=== PATIENT | male | born 1955 | race Two or more races ===

== ENCOUNTER 2017-10-20 11:13 | Emergency (ER) | payer MEDICARE, OTHER ==
--- NOTE | 2017-10-20 11:26 | PDOC ---
Attending Attestation - Resident Resident Name: Zach Sanchez - ED Attending Attestation I have performed the following: I have examined & evaluated the patient, The case was reviewed & discussed with the resident, I agree w/resident's findings & plan, Exceptions are as noted - HPI HPI: 10/20/17 11:25 62 yo male with left flank pain - Physicial Exam PE: 10/20/17 11:25 VSS/NAD - Medical Decision Making 10/20/17 11:[address] Sanchez's Assessment and Plan Discharge Disposition - Diagnosis Kidney stone on left side - Discharge Dispostion Disposition: HOME Condition at time of disposition: Improved Admit: No - Referrals Referrals: Bernardo Kern MD [Primary Care Provider] - - Patient Instructions Printed Discharge Instructions: DI for Kidney Stones Additional Instructions: See Dr. Estes as soon as possible. Toradol is for pain. Return to us if worse or new symptoms occur Best- Dr. Les SAUNDERS - Post Discharge Activity
[2017-10-20 11:28] VITALS: PULSE 65; TEMP 98; BMI 35.6
[2017-10-20] MEDS ORDERED: SODIUM CHLORIDE 0.9% 1000 ML INFUS.BAG IV ONE (11:33)
[2017-10-20] MEDS ORDERED: KETOROLAC TROMETHAMINE 30 MG/1 ML VIAL IVPUSH ONE (11:33)
[2017-10-20] MEDS ORDERED: KETOROLAC TROMETHAMINE 30 MG/1 ML VIAL ONE (11:52)
[2017-10-20 12:15] LABS: BASO # 0.1 # (0.1-1); BASO % 0.7 % (0-2.0); EOS # 0.1 # (0-4.5); EOS % 1.1 % (0-4.5); MCH 30.1 pg (25.7-33.7); MCHC 32.6 g/dl (32.0-35.9); MEAN CELL VOLUME 92.3 fl (80-96); MEAN PLT VOLUME 7.9 fl (7.5-11.1); MONO # 0.7 # (3.8-10.2); NEUT % 73.1 % (42.8-82.8); PLATELET COUNT 291 K/MM3 (134-434); RDW 14.3 % (11.9-15.9)
[2017-10-20 12:17] LABS: URINE APPEARANCE SLCLOUDY; URINE BILIRUBIN NEGATIVE (NEGATIVE); URINE BLOOD 3+ (NEGATIVE); URINE COLOR LTYELLOW; URINE GLUCOSE (UA) 1+ (NEGATIVE); URINE KETONE NEGATIVE (NEGATIVE); URINE LEUK ESTERASE NEGATIVE (NEGATIVE); URINE NITRITE NEGATIVE (NEGATIVE); URINE UROBILINOGEN NEGATIVE mg/dL (0.2-1.0)
[2017-10-20 12:27] LABS: URINE PROTEIN 1+ (NEGATIVE)
[2017-10-20 12:29] LABS: URINE HYALINE CAST 2 /lpf; URINE RBC 1044 /hpf (0-3); URINE WBC <1 /hpf (3-5)
[2017-10-20 12:43] LABS: ALBUMIN 3.6 g/dl (3.4-5.0); ANION GAP 10 (8-16); BILIRUBIN,TOTAL 0.2 mg/dL (0.2-1.0); CALCIUM 9.2 mg/dL (8.5-10.1); CO2 23 mmol/L (21-32); CREATININE 1.6 mg/dL (0.7-1.3); GLUCOSE,RANDOM 197 mg/dL (74-106); SGOT/AST 11 U/L (15-37); SGPT/ALT 25 U/L (12-78); TOT PROT 7.3 g/dl (6.4-8.2)
[2017-10-20 12:45] LABS: ALK PHOS 87 U/L (45-117); CPK 102 IU/L (39-308); TROPONIN I 0.02 ng/ml (0.00-0.05)
--- NOTE | 2017-10-20 14:26 | PDOC ---
History of Present Illness - General History Source: Patient Exam Limitations: No Limitations - History of Present Illness Initial Comments: 10/20/17 14:20 The patient is a 62M with a PMH of BPH with urological procedures who presents to the ED complaining of L flank pain. The patient states that it started around 10am this morning and radiates to his groin. It is a sharp pain, waxing and waning. He has not taken anything for the pain. He denies any history of stones or hematuria. <Zach Sanchez - Last Filed: 10/20/17 15:05> <Les Kelsey - Last Filed: 10/20/17 15:45> - General Chief Complaint: Pain, Acute Stated Complaint: BACK PAIN Time Seen by Provider: 10/20/17 11:23 Past History - Past Medical History Cancer: Yes (prostate) COPD: No Diabetes: Yes HTN: Yes - Suicide/Smoking/Psychosocial Hx Smoking Status: Yes Smoking History: Never smoked Have you smoked in the past 12 months: No Number of Cigarettes Smoked Daily: 5 Information on smoking cessation initiated: No Hx Alcohol Use: No Drug/Substance Use Hx: No Substance Use Type: None <Zach Sanchez - Last Filed: 10/20/17 15:05> <Les Kelsey - Last Filed: 10/20/17 15:45> - Past Medical History Allergies/Adverse Reactions: Allergies Allergy/AdvReac Type Severity Reaction Status Date / Time No Known Allergies Allergy Verified 10/20/17 11:24 Home Medications: Ambulatory Orders Metformin HCl [Glucophage] 1,000 mg PO BID@0700,1630 01/04/13 Ketorolac Tromethamine [Toradol] 10 mg PO Q6H #28 tablet 10/20/17 Lisinopril [Prinivil -] 40 mg PO DAILY 10/20/17 Simvastatin 20 mg PO DAILY 10/20/17 Tamsulosin HCl 0.4 mg PO DAILY 10/20/17 Review of Systems - Review of Systems Able to Perform ROS?: Yes Comments:: 10/20/17 14:24 GENERAL/CONSTITUTIONAL: No fever or chills. No weakness. HEAD, EYES, EARS, NOSE AND THROAT: No change in vision. No ear pain or discharge. No sore throat. GASTROINTESTINAL: No nausea, vomiting, diarrhea, constipation, or abdominal pain. GENITOURINARY: Positive for L flank pain. No dysuria, frequency, hematuria, or change in urination. CARDIOVASCULAR: No chest pain, palpitations, or lightheadedness. RESPIRATORY: No cough, wheezing, shortness of breath, or hemoptysis. MUSCULOSKELETAL: No joint or muscle swelling or pain. No neck or back pain. SKIN: No rash or lesions. NEUROLOGIC: No headache, numbness, tingling, weakness, loss of consciousness, or change in strength/sensation. ENDOCRINE: No increased thirst. No abnormal weight change. HEMATOLOGIC/LYMPHATIC: No anemia, easy bleeding, or history of blood clots. ALLERGIC/IMMUNOLOGIC: No hives or skin allergy. Is the patient limited Amharic proficient: No <Zach Sanchez - Last Filed: 10/20/17 15:05> *Physical Exam - Vital Signs Last Vital Signs Temp Pulse Resp BP Pulse Ox 98.0 F 65 18 144/89 100 10/20/17 11:22 10/20/17 11:22 10/20/17 11:22 10/20/17 11:22 10/20/17 11:22 - Physical Exam Comments: 10/20/17 14:27 GENERAL: Well developed, well nourished. Awake and alert. No acute distress. HEENT: Normocephalic, atraumatic. Hearing grossly normal. Moist mucous membranes. NECK: Supple. Full ROM. No JVD. CARDIOVASCULAR: Regular rate and rhythm. No murmurs, rubs, or gallops. Distal pulses are 2+ and symmetric. PULMONARY: No evidence of respiratory distress. Lungs clear to auscultation bilaterally. No wheezing, rales or rhonchi. ABDOMINAL: Soft. Non-tender. Non-distended. No rebound or guarding. No organomegaly. Normoactive bowel sounds. GENITOURINARY: L sided CVA tenderness. MUSCULOSKELETAL: Normal range of motion at all joints. No bony deformities or tenderness. EXTREMITIES: No cyanosis. No clubbing. No edema. No calf tenderness. SKIN: Warm and dry. Normal capillary refill. No rashes. No jaundice. NEUROLOGICAL: Alert, awake, appropriate. Cranial nerves 2-12 intact. Normal speech. Gait is normal without ataxia. PSYCHIATRIC: Cooperative. Good eye contact. Appropriate mood and affect. <Zach Sanchez - Last Filed: 10/20/17 15:05> - Vital Signs Last Vital Signs Temp Pulse Resp BP Pulse Ox 98.0 F 65 18 144/89 100 10/20/17 11:22 10/20/17 11:22 10/20/17 11:22 10/20/17 11:22 10/20/17 11:22 <Les Kelsey - Last Filed: 10/20/17 15:45> ED Treatment Course - LABORATORY CBC & Chemistry Diagram: 10/20/17 12:07 10/20/17 12:07 - ADDITIONAL ORDERS Additional order review: Laboratory Results 10/20/17 10/20/17 12:07 12:07 Sodium 140 Potassium 4.6 Chloride 107 Carbon Dioxide 23 Anion Gap 10 BUN 29 H Creatinine 1.6 H Creat Clearance w eGFR 43.74 Random Glucose 197 H Calcium 9.2 Total Bilirubin 0.2 AST 11 L ALT 25 Alkaline Phosphatase 87 Creatine Kinase 102 Troponin I 0.02 Total Protein 7.3 Albumin 3.6 Lipase 348 Urine Color Ltyellow Urine Appearance Slcloudy Urine pH 5.0 Ur Specific Thompson 1.023 Urine Protein 1+ H Urine Glucose (UA) 1+ H Urine Ketones Negative Urine Blood 3+ H Urine Nitrite Negative Urine Bilirubin Negative Urine Urobilinogen Negative Urine WBC (Auto) <1 Urine RBC (Auto) 1044 Hyaline Casts 2 10/20/17 12:07 RBC 4.18 MCV 92.3 MCHC 32.6 RDW 14.3 MPV 7.9 Neutrophils % 73.1 Lymphocytes % 18.5 Monocytes % 6.6 Eosinophils % 1.1 Basophils % 0.7 - RADIOLOGY Radiology Studies Ordered: Category Date Time Status SPIRAL- RENAL-STONE CT [CT] Stat CT Scan 10/20/17 13:16 Ordered - Medications Given in the ED: ED Medications Discontinued Medications Generic Name Dose Route Start Last Admin Trade Name Freq PRN Reason Stop Dose Admin Ketorolac Tromethamine 30 mg 10/20/17 11:33 10/20/17 12:01 Toradol Injection - IVPUSH 10/20/17 11:34 30 mg ONCE ONE Administration Sodium Chloride 500 ml 10/20/17 11:33 10/20/17 12:00 Normal Saline - IV 10/20/17 11:34 500 ml ONCE ONE Administration <Zach Sanchez - Last Filed: 10/20/17 15:05> - LABORATORY CBC & Chemistry Diagram: 10/20/17 12:07 10/20/17 12:07 - ADDITIONAL ORDERS Additional order review: Laboratory Results 10/20/17 10/20/17 12:07 12:07 Sodium 140 Potassium 4.6 Chloride 107 Carbon Dioxide 23 Anion Gap 10 BUN 29 H Creatinine 1.6 H Creat Clearance w eGFR 43.74 Random Glucose 197 H Calcium 9.2 Total Bilirubin 0.2 AST 11 L ALT 25 Alkaline Phosphatase 87 Creatine Kinase 102 Troponin I 0.02 Total Protein 7.3 Albumin 3.6 Lipase 348 Urine Color Ltyellow Urine Appearance Slcloudy Urine pH 5.0 Ur Specific Thompson 1.023 Urine Protein 1+ H Urine Glucose (UA) 1+ H Urine Ketones Negative Urine Blood 3+ H Urine Nitrite Negative Urine Bilirubin Negative Urine Urobilinogen Negative Ur Leukocyte Esterase Negative Urine WBC (Auto) <1 Urine RBC (Auto) 1044 Hyaline Casts 2 10/20/17 12:07 RBC 4.18 MCV 92.3 MCHC 32.6 RDW 14.3 MPV 7.9 Neutrophils % 73.1 Lymphocytes % 18.5 Monocytes % 6.6 Eosinophils % 1.1 Basophils % 0.7 - Medications Given in the ED: ED Medications Discontinued Medications Generic Name Dose Route Start Last Admin Trade Name Freq PRN Reason Stop Dose Admin Ketorolac Tromethamine 30 mg 10/20/17 11:33 10/20/17 12:01 Toradol Injection - IVPUSH 10/20/17 11:34 30 mg ONCE ONE Administration Sodium Chloride 500 ml 10/20/17 11:33 10/20/17 12:00 Normal Saline - IV 10/20/17 11:34 500 ml ONCE ONE Administration <Les Kelsey - Last Filed: 10/20/17 15:45> Medical Decision Making - Medical Decision Making 10/20/17 14:27 The patient is a 62M with a PMH of BPH who presents to the ED with renal colick , likely 2/2 to a kidney stone. I have given toradol for pain relief and the patient states he feels much better. Will order spiral CT for confirmation of stone and stone size for disposition. Will d/c with toradol. 10/20/17 15:05 <Zach Sanchez - Last Filed: 10/20/17 15:05> *DC/Admit/Observation/Transfer <Zach Sanchez - Last Filed: 10/20/17 15:05> <Les Kelsey - Last Filed: 10/20/17 15:45> Diagnosis at time of Disposition: Kidney stone on left side - Discharge Dispostion Disposition: HOME Condition at time of disposition: Improved - Prescriptions Prescriptions: Ketorolac Tromethamine [Toradol] 10 mg PO Q6H #28 tablet - Referrals Referrals: Bernardo Kern MD [Primary Care Provider] - Juan Estes MD., [Staff Physician] - - Patient Instructions Printed Discharge Instructions: DI for Kidney Stones Additional Instructions: See Dr. Estes as soon as possible. Toradol is for pain. Return to us if worse or new symptoms occur Best- Dr. Les SAUNDERS - Post Discharge Activity
[2017-10-20 14:38] LABS: URINE LEUK ESTERASE Negative (NEGATIVE)
[2017-10-20 16:05] VITALS: BP 138/75
== END 2017-10-20 16:08 | disposition home or self-care (01) ==
LOC: JER 11:13
PROC: 3E0333Z Introduction of Anti-inflammatory into Peripheral Vein, Percutaneous Approach (ICD-10-PCS; principal; 2017-10-20)
DX: N20.0 Calculus of kidney (principal); N40.0 Benign prostatic hyperplasia without lower urinary tract symptoms
CPT/HCPCS: 36415; 74176; 80053; 81003; 81015; 82550; 83690; 84484; 85025; 87086; 99284-25

== ENCOUNTER 2024-07-22 04:18 | Day surgery (SDC) | payer OTHER ==
[~2024-07-22 04:18] MED LIST: ACETAMINOPHEN 325 MG TABLET (FP) PO PRN
[2024-07-22] MEDS ORDERED: PHENYLEPHRINE/KETOROLAC 4 ML VIAL IO ONE (07:16)
[2024-07-22] MEDS ORDERED: TETRACAINE 0.5% OPHTH SOLN 2 ML BOTTLE ONE (07:16)
[2024-07-22] MEDS ORDERED: BSS (NA/CA/MG/K) BALANCED SALT SOLUTION OPHTH SOLN 15 ML BOTTLE ONE (07:16)
[2024-07-22] MEDS ORDERED: LIDOCAINE HCL/PF 1% SDV 5ML VIAL ONE (07:16)
[2024-07-22] MEDS ORDERED: POVIDONE-IODINE 5% OPHTHALMIC PREP 30 ML SOLUTION ONE (07:17)
[2024-07-22] MEDS ORDERED: EPINEPHrine/PF 1 MG/1 ML (1:1,000) AMPULE ONE (07:29)
[2024-07-22] MEDS ORDERED: TROPICAMIDE 1% OPHTH SOLN 15 ML BOTTLE ONE (08:44)
[2024-07-22] MEDS ORDERED: CYCLOPENTOLATE HCL 1% OPHTH SOLN 2 ML BOTTLE ONE (08:44)
[2024-07-22] MEDS ORDERED: OFLOXACIN 0.3% OPHTHALMIC SOLUTION 5 ML BOTTLE ONE (08:44)
[2024-07-22] MEDS ORDERED: PHENYLEPHRINE 2.5% OPTHALMIC DROP 2ML BOTTLE ONE (08:44)
[2024-07-22] MEDS ORDERED: KETOROLAC TROMETHAMINE 0.5% EYE DROP 1 DROP DROPS ONE (08:44)
[2024-07-22] MEDS: CYCLOPENTOLATE HCL 1% OPHTH SOLN 2 ML BOTTLE OP SCH (08:52)
[2024-07-22] MEDS: PHENYLEPHRINE 2.5% OPHTH SOLN 15 ML BOTTLE OP SCH (08:52)
[2024-07-22] MEDS: OFLOXACIN 0.3% OPHTHALMIC SOLUTION 5 ML BOTTLE OP SCH (08:52)
[2024-07-22] MEDS: TROPICAMIDE 1% OPHTH SOLN 15 ML BOTTLE OP SCH (08:53)
[2024-07-22] MEDS: KETOROLAC TROMETHAMINE 0.5% EYE DROP 1 DROP DROPS OP SCH (08:53)
[2024-07-22 08:55] VITALS: PULSE 52; RESP 20
[2024-07-22] MEDS ORDERED: MIDAZOLAM HCL 2 MG/2 ML SINGLE DOSE VIAL ONE (09:59)
[2024-07-22] MEDS: TETRACAINE 0.5% OPHTH SOLN 2 ML BOTTLE OS ONE ×2 (10:14)
[2024-07-22] MEDS: POVIDONE-IODINE 5% OPHTHALMIC PREP 30 ML SOLUTION OS ONE ×2 (10:17)
[2024-07-22] MEDS: LIDOCAINE HCL 1% PRESERVATIVE FREE - 30ML VIAL IO ONE ×2 (10:23)
[2024-07-22] MEDS: TRYPAN BLUE 0.5 ML DISP.SYRIN IO ONE ×2 (10:26)
[2024-07-22] MEDS: BSS (NA/CA/MG/K) BALANCED SALT SOLUTION OPHTH SOLN 15 ML BOTTLE OS ONE ×2 (10:26)
[2024-07-22] MEDS: CHONDROITIN SU A/HYALUR SOD 1 KIT IO ONE ×2 (10:27)
[2024-07-22] MEDS: HYALURONATE SODIUM 23 MG/1 ML SYRINGE IO ONE ×2 (10:29)
[2024-07-22] MEDS: ACETYLCHOLINE 1:100 INTRA-OCUL 20 MG/2 ML KIT IO ONE ×2 (10:37→10:55)
[2024-07-22] MEDS: PHENYLEPHRINE/KETOROLAC 4 ML VIAL IO ONE ×2 (11:02)
[2024-07-22 11:54] VITALS: BP 113/71; TEMP 97.8
== END 2024-07-22 11:56 | disposition home or self-care (01) ==
LOC: JASU-SURG 04:18
PROVIDERS: ATTEND Ophthalmology
PROC: 08RK3JZ Replacement of Left Lens with Synthetic Substitute, Percutaneous Approach (ICD-10-PCS; principal; 2024-07-22 11:00)
DX: H25.89 Other age-related cataract (principal)
CPT/HCPCS: 66984; V2632; 82962; J1097